=== PATIENT | male | born 1945 | race Caucasian/White ===

== ENCOUNTER 2024-01-16 09:57 | Outpatient (CLI) | payer MEDICARE | END 2024-01-16 09:58 | disposition home or self-care (01) | LOC: MRI 09:57 | PROVIDERS: ATTEND Specialist | DX: M47.22 Other spondylosis with radiculopathy, cervical region (principal); M47.26 Other spondylosis with radiculopathy, lumbar region; M48.02 Spinal stenosis, cervical region; M48.03 Spinal stenosis, cervicothoracic region; M48.061 Spinal stenosis, lumbar region without neurogenic claudication; R60.9 Edema, unspecified | CPT/HCPCS: 72141; 72148 ==

== ENCOUNTER 2024-11-26 11:33 | Outpatient (CLI) | payer OTHER | END 2024-11-26 11:34 | disposition home or self-care (01) | LOC: BICMAMMO 11:33 | PROVIDERS: ATTEND Family Medicine | DX: S22.089D Unspecified fracture of T11-T12 vertebra, subsequent encounter for fracture with routine healing (principal) | CPT/HCPCS: 77080 ==